=== PATIENT | male | born 1995 | race African-American/Black ===

== ENCOUNTER 2021-11-06 17:29 | Emergency (ER) | payer MEDICAID ==
[~2021-11-06] VITALS: Ht 182.9 cm; Wt 111.0 kg
[2021-11-06] MEDS ORDERED: HYDROCODONE/ACETAMINOPHEN 5/325MG TABLET PO ONE (18:00)
[2021-11-06] MEDS ORDERED: TRAM50TA3 MT (19:00)
[2021-11-06] MEDS ORDERED: IBUP-2030 MT (19:00)
[2021-11-06 19:39] VITALS: BP 132/72
== END 2021-11-06 19:41 | disposition home or self-care (01) ==
LOC: ER 17:29
DX: S52.591A Other fractures of lower end of right radius, initial encounter for closed fracture (principal); S59.801A Other specified injuries of right elbow, initial encounter; S69.81XA Other specified injuries of right wrist, hand and finger(s), initial encounter; W01.198A Fall on same level from slipping, tripping and stumbling with subsequent striking against other object, initial encounter; Y93.67 Activity, basketball; Y92.310 Basketball court as the place of occurrence of the external cause
CPT/HCPCS: 29125; 73080; 73110; 73130; 99284